=== PATIENT | male | born 1985 | race American Indian/Alaskan Native ===

== ENCOUNTER 2018-08-19 02:23 | Emergency (ER) | payer SELFPAY ==
[2018-08-19 02:41] VITALS: BMI 26.5
[2018-08-19 02:44] VITALS: BP 171/111; PULSE 100; RESP 18; TEMP 98.2; O2SAT 99
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
== END 2018-08-19 03:12 | disposition home or self-care (01) ==
LOC: H.ER 02:23
DX: S10.93XA Contusion of unspecified part of neck, initial encounter (principal); Y04.0XXA Assault by unarmed brawl or fight, initial encounter